=== PATIENT | male | born 2000 | race Caucasian/White ===

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

== ENCOUNTER 2021-01-09 18:54 | Observation (INO) | payer MEDICAID, SELFPAY ==
[2021-01-09 19:06] VITALS: BP 134/87; PULSE 75; RESP 18; TEMP 37.5; O2SAT 100
[2021-01-09 19:50] LABS: Abs Immature Grans 0.03 10^3/uL (0.0-0.06); Absolute Basophil Count 0.05 10^3/uL (0.0-0.2); Absolute Eosinophil Count 0.05 10^3/uL (0.0-0.7); Absolute Lymphocyte Count 1.62 10^3/uL (1.2-3.4); Absolute Neutrophil Count 5.88 10^3/uL (1.2-6.7); Basophils % 0.6; Eosinophils % 0.6; HCT 44.1 % (40.0-50.0); HGB 14.7 g/dL (13.5-17.5); Immature Grans % 0.4; Lymphocytes % 19.4; MCH 29.3 pg (27.0-33.0); MCHC 33.3 % (32.0-36.0); MCV 87.8 fL (80-95); MPV 11.3 fL (8.0-11.0); Monocytes % 8.4; Neutrophils % 70.6; Nucleated RBC 0 %; Platelet Count 198 10^3/uL (130-400); RBC 5.02 10^6/uL (4.36-5.78); RDW 12.6 % (11.8-14.1); RDW-SD 40.7 fL; WBC 8.33 10^3/uL (4.4-10.8)
[2021-01-09 19:57] LABS: Bilirubin Negative (Negative); Blood Trace-intact (Negative); Clarity Clear (Clear); Glucose Negative (Negative); Ketones Negative (Negative); Leukocyte Esterase Negative (Negative); Nitrite Negative (Negative); Specific Gravity >= 1.030 (1.005-1.025); Urobilinogen 0.2 EU/dL (Up TO 0.2); pH 6.5 (5-8)
--- NOTE | 2021-01-09 20:05 | W.ED.GENAD ---
Discharge Plan Disposition Patient Disposition: [facility] INPATIENT Condition: Stable Discharge Details Clinical Impression: Suicidal ideation Admit Date/Time: 01/09/21 23:51 Admit Provider: Renny Ta Attending Provider: Renny Ta Primary Care Provider: Layo Moore ED Provider: Michelle Suh Discharge Data Discharge Date/Time-TO BE ENTERED AT DEPARTURE: 01/10/21 03:05 Medical Decision Making 20-year-old male presents to the ER with chief complaint of suicidal thoughts. He reports that if he did have a plan he would hang myself but not really. He reports he has a history of previous admissions to [place] and [facility]. He reports that he has been having issues with his mental health lately he does appear anxious and restless and fidgety. He is a daily smoker. He denies any illicit drugs. He reports that he is supposed to be on medications but has not taken them in a while. He states that he was seeing psychiatrist but not recently. Patient is an line of sight of nurses station, belongings collected by engineer technical staff patient in paper scrubs. Medical clearance exam ordered and mental health evaluation. At this time 0.5 mg lorazepam p.o. ordered. Patient is calm and cooperative at this time. 2215: Spoke with Yudi with [facility] she reports he needs inpatient status, he endorses wanting to Hang self, slit wrists, or slit his throat, or overdose She reports he has no active plan, but she will do case management after he gets out. She recommends inpatient. He is voluntary status. She reports [facility] not accepting any referrals, is seeking placement at this time. 2342: Spoke with Airam Infante NP who is on-call for hospitalist service. I did discuss patient case and details with her she verbalizes understanding is in agreement for acceptance of patient for admission pending inpatient psychiatric placement. Patient has remained calm and cooperative throughout stay in the ER. Sitter at bedside. Plan is for patient to go up to floor at approximately 3am. Remains calm and cooperative hemodynamically stable. CPS so at bedside. Discussed pending admission with Dr. Galvan who is the ER physician. HPI General Mode of arrival: ambulatory. Date/Time Provider Initiated Documentation: 01/09/21 18:55. Limitations to Documentation: no limitations. Information obtained by: patient, RN notes reviewed and old records reviewed. HPI Narrative: 20-year-old male presents to the ER with chief complaint of suicidal thoughts. He reports that if he did have a plan he would hang myself but not really. He reports he has a history of previous admissions to [facility]. He reports that he has been having issues with his mental health lately he does appear anxious and restless and fidgety. He is a daily smoker. He denies any illicit drugs. He reports that he is supposed to be on medications but has not taken them in a while. He states that he was seeing psychiatrist but not recently. Related Data Home Medications Medication Instructions Recorded Confirmed Unknown [No Known Home Meds] 01/09/21 01/09/21 Allergies Allergy/AdvReac Type Severity Reaction Status Date / Time latex Allergy Unverified 01/09/21 19:13 General Stated Complaint: PsychEval ALISIA: 2 Review of Systems All systems reviewed & are unremarkable except as noted in HPI and below Constitutional Constitutional: Reports as per HPI, Reports difficulty sleeping, Denies fever(s) and Denies headache(s) ENT Ears, Nose, Mouth, and Throat: Denies headache(s) Gastrointestinal Gastrointestinal: Reports nausea and Reports vomiting Neurologic Neurologic: Denies headache(s) Psychiatric Psychiatric: Reports abnormal sleep pattern, Reports anxiety, Reports change in appetite, Reports depression and Reports suicidal ideation [facility] Social History Smoking/Tobacco Use Status: Current every day Tobacco Type: cigarettes Smoking risk assessment performed?: Yes Alcohol Intake: former Drug use: Current Sobriety Substance use type: former substance user Details: Clean x 7 months Do you feel safe at home: Yes Do you feel safe in your relationship?: Yes Exam Const General: cooperative, healthy appearing and anxious Nutritional Appearance: average body habitus and well nourished Orientation: alert, awake and oriented x3 Chest Chest: normal inspection of the chest Resp Effort & Inspection: normal respiratory effort and able to speak in complete sentences Cardio Palpation: normal PMI Rate: regular rate Rhythm: regular rhythm Heart Sounds: S1 normal and S2 normal GI Inspection: normal to inspection Palpation: soft and no guarding Auscultation: normal bowel sounds Psych Speech and Movement: restless Mood: anxious mood Affect: anxious affect Attitude: cooperative and guarded Thought Content: compulsions and suicidality Insight: insight good Judgment: fair Course Vital Signs Vital signs: Vital Signs Temperature 37.5 C 01/09/21 19:06 Pulse 75 01/09/21 19:06 Respiratory Rate 18 01/09/21 19:06 Blood Pressure 134/87 01/09/21 19:06 Pulse Oximetry 100 01/09/21 19:06 Temperature 37.5 C 01/09/21 19:06 Temperature Source Tympanic 01/09/21 19:06 Pulse 75 01/09/21 19:06 Respiratory Rate 18 01/09/21 19:06 Respiratory Effort Non-Labored 01/09/21 19:17 Blood Pressure 134/87 01/09/21 19:06 Blood Pressure Position Sitting 01/09/21 19:06 Pulse Oximetry 100 01/09/21 19:06 Oxygen Delivery Method Room Air 01/09/21 19:06 Oxygen Flow Rate 0 01/09/21 19:06 Pain Level 0 01/09/21 19:06 Lab/Test Results Lab/Test Results: Laboratory Tests Range/Units 01/09/21 01/09/21 19:12 19:40 WBC (4.4-10.8) 10^3/uL 8.33 RBC (4.36-5.78) 10^6/uL 5.02 Hgb (13.5-17.5) g/dL 14.7 Hct (40.0-50.0) % 44.1 MCV (80-95) fL 87.8 MCH (27.0-33.0) pg 29.3 MCHC (32.0-36.0) % 33.3 RDW (11.8-14.1) % 12.6 Plt Count (130-400) 10^3/uL 198 MPV (8.0-11.0) fL 11.3 H Immature Gran % 0.4 Neutrophils % 70.6 Lymphocytes % 19.4 Monocytes % 8.4 Eosinophils % 0.6 Basophils % 0.6 Nucleated RBC % % 0 Absolute Neutrophils (1.2-6.7) 10^3/uL 5.88 Absolute Lymphocytes (1.2-3.4) 10^3/uL 1.62 Absolute Monocytes (0.1-0.8) 10^3/uL 0.70 Absolute Eosinophils (0.0-0.7) 10^3/uL 0.05 Absolute Basophils (0.0-0.2) 10^3/uL 0.05 Urine Color (Yellow) Yellow Urine Clarity (Clear) Clear Urine pH (5-8) 6.5 Ur Specific [place] (1.005-1.025) >= 1.030 H Urine Protein (Negative) mg/dL Negative Urine Ketones (Negative) mg/dL Negative Urine Blood (Negative) Trace-intact H Urine Nitrite (Negative) Negative Urine Bilirubin (Negative) Negative Urine Urobilinogen (Up TO 0.2) EU/dL 0.2 Ur Leukocyte Esterase (Negative) Negative Urine Glucose (Negative) mg/dL Negative
[2021-01-09] MEDS: LORazepam 0.5 MG TAB PO (20:10)
[2021-01-09 20:13] LABS: ALT 13 U/L (16-63); AST 9 U/L (15-37); Albumin 4.6 g/dL (3.4-5.0); Alkaline Phosphatase 71 U/L (46-116); Anion Gap 8.9 mmol/L (3-11); BUN 9 mg/dL (7-18); Bilirubin, Total 0.4 mg/dL (0.2-1.0); CO2 28.1 mmol/L (21.0-32.0); CREATININE 0.9 mg/dL (0.70-1.30); Calcium 9.4 mg/dL (8.5-10.1); Chloride 105 mmol/L (98-107); Glucose 106 mg/dL (74-106); Potassium 3.7 mmol/L (3.5-5.1); Sodium 142 mmol/L (136-145); TSH (W/Ref FT4) 1.52 uIU/mL (0.52-4.13)
[2021-01-09 20:15] LABS: Bacteria Negative HPF (Negative); C & S Indicated? No; Casts Negative LPF (Negative); Crystals Few Amorphous HPF (Negative); Epithelial Cells Negative HPF (Negative); Mucus Negative (Negative); Other Cells Negative (Negative); RBC 0-2 HPF (0-2); WBC Negative HPF (0-5)
[2021-01-09 20:18] LABS: *AMPHETAMINES SCREEN URINE Negative (Negative); *BARBITURATES SCREEN URINE Negative (Negative); *BENZODIAZEPINES SCREEN URINE Negative (Negative); Cannabinoids THC Positive (Negative); Cocaine Screen,Urine Negative (Negative); METHADONE URINE SCREEN Negative (Negative); OPIATES URINE SCREEN Negative (Negative)
[2021-01-09 20:19] LABS: Tricyclic Antidepressants Negative (Negative)
[2021-01-09 20:20] LABS: Salicylate < 2.8 mg/dL (<2.8)
[2021-01-09 20:25] LABS: ETHANOL BLOOD < 3.0 mg/dL (<3)
[2021-01-09 20:26] LABS: Acetaminophen < 2 ug/mL (10-30)
--- NOTE | 2021-01-10 00:39 | W.PM.HP.N ---
Date of service: 01/10/21 Time of Service: 00:39 Assessment and Plan Assessment and plan (1) Suicidal ideation: Start date: 01/10/21 Start time: 00:45 Status: Acute Assessment and plan: Thoughts of SI evaluated by and cleared for voluntary status. Awaiting bed placement at this time CPSO present discussed with Dr. Ta History of Present Illness History of Present Illness Chief Complaint: Suicidial Ideation Narrative: 20 y.o male with no pmh presented to the ED with thoughts of wanting to harm himself. He thought of hanging himself if really wanted to do self harm. He was evaluated by and found to save for voluntary service. He was asked to be admitted to transition unit until a MH bed is available. He has been medically cleared. He will be admitted with 1:1 cpso. Review of Systems All systems reviewed & are unremarkable except as noted in HPI and below PFSH Social History Smoking/Tobacco Use Status: Current every day Tobacco Type: cigarettes Smoking risk assessment performed?: Yes Alcohol Intake: former Drug use: Current Sobriety Substance use type: former substance user Details: Clean x 7 months Do you feel safe at home: Yes Do you feel safe in your relationship?: Yes Meds Allergies and Home Medications Allergies Allergy/AdvReac Type Severity Reaction Status Date / Time latex Allergy Unverified 01/09/21 19:13 Home Medications Medication Instructions Recorded Confirmed Type Unknown [No Known Home Meds] 01/09/21 01/09/21 History Exam Const General: cooperative and no acute distress Eyes Pupils: PERRL Resp Effort & Inspection: normal respiratory effort Auscultation: clear to auscultation bilaterally Cardio Jugular venous pressure: no JVD Rate: regular rate Rhythm: regular rhythm GI Inspection: normal to inspection Auscultation: normal bowel sounds Skin General skin exam: no rashes or lesions noted Psych Appearance: grossly normal Mental Status: mental status grossly normal and other Speech and Movement: speech and movement normal Mood: other Affect: sad Attitude: cooperative Thought Process: other Thought Content: suicidality Insight: limited Judgment: limited Results Labs Result diagrams: 01/09/21 19:40 01/09/21 19:40 Labs: Laboratory Results - last 24 hr 01/09/21 01/09/21 01/09/21 19:12 19:12 19:40 WBC RBC Hgb Hct MCV MCH MCHC RDW Plt Count MPV Immature Gran % Neutrophils % Lymphocytes % Monocytes % Eosinophils % Basophils % Nucleated RBC % Absolute Neutrophils Absolute Lymphocytes Absolute Monocytes Absolute Eosinophils Absolute Basophils Sodium 142 Potassium 3.7 Chloride 105 Carbon Dioxide 28.1 Anion Gap 8.9 BUN 9 Creatinine 0.9 Estimated GFR/1.73 m2 >= 60.00 Glucose 106 Calcium 9.4 Total Bilirubin 0.4 AST 9 L ALT 13 L Alkaline Phosphatase 71 Total Protein 8.0 Albumin 4.6 TSH 1.52 Urine Color Yellow Urine Clarity Clear Urine pH 6.5 Ur Specific [place] >= 1.030 H Urine Protein Negative Urine Ketones Negative Urine Blood Trace-intact H Urine Nitrite Negative Urine Bilirubin Negative Urine Urobilinogen 0.2 Ur Leukocyte Esterase Negative Urine RBC 0-2 Urine WBC Negative Ur Epithelial Cells Negative Urine Crystals Few Amorphous Urine Bacteria Negative Urine Casts Negative Urine Mucus Negative Urine Other Negative Ur Culture Indicated? No Urine Glucose Negative Salicylates Urine Opiates Screen Negative Urine Methadone Screen Negative Acetaminophen Ur Barbiturates Screen Negative Ur Tricyclics Screen Negative Ur Amphetamines Screen Negative U Benzodiazepines Scrn Negative Urine Cocaine Screen Negative Ur THC Screen Positive A Ethyl Alcohol < 3.0 01/09/21 01/09/21 19:40 19:40 WBC 8.33 RBC 5.02 Hgb 14.7 Hct 44.1 MCV 87.8 MCH 29.3 MCHC 33.3 RDW 12.6 Plt Count 198 MPV 11.3 H Immature Gran % 0.4 Neutrophils % 70.6 Lymphocytes % 19.4 Monocytes % 8.4 Eosinophils % 0.6 Basophils % 0.6 Nucleated RBC % 0 Absolute Neutrophils 5.88 Absolute Lymphocytes 1.62 Absolute Monocytes 0.70 Absolute Eosinophils 0.05 Absolute Basophils 0.05 Sodium Potassium Chloride Carbon Dioxide Anion Gap BUN Creatinine Estimated GFR/1.73 m2 Glucose Calcium Total Bilirubin AST ALT Alkaline Phosphatase Total Protein Albumin TSH Urine Color Urine Clarity Urine pH Ur Specific [place] Urine Protein Urine Ketones Urine Blood Urine Nitrite Urine Bilirubin Urine Urobilinogen Ur Leukocyte Esterase Urine RBC Urine WBC Ur Epithelial Cells Urine Crystals Urine Bacteria Urine Casts Urine Mucus Urine Other Ur Culture Indicated? Urine Glucose Salicylates < 2.8 Urine Opiates Screen Urine Methadone Screen Acetaminophen < 2 Ur Barbiturates Screen Ur Tricyclics Screen Ur Amphetamines Screen U Benzodiazepines Scrn Urine Cocaine Screen Ur THC Screen Ethyl Alcohol Last Vital Signs Temp 37.5 C 01/09/21 19:06 Pulse 75 01/09/21 19:06 Resp 18 01/09/21 19:06 BP 134/87 01/09/21 19:06 Pulse Ox 100 01/09/21 19:06
[2021-01-10 03:30] VITALS: BP 130/82; PULSE 55; RESP 16; TEMP 35.8; O2SAT 98
[2021-01-10 03:52] LABS: Source Nasal/Nares
[2021-01-10 04:45] LABS: COVID-19 PCR Negative (Negative)
--- NOTE | 2021-01-10 08:36 | PDOC.CMPRO ---
- If Service Date Differs Date of service: 01/10/21 Time of Service: 08:41 Care Management Progress Note VOLUNTARY FOR INPATIENT PSYCHIATRIC STABILIZATION. Glen has been appropriate in all interactions since arriving at [facility]; he has demonstrated appropriate coping and communication skills, has articulated his needs and concerns and is fully engaged during staff interactions. He requested medication this morning when feeling anxious (refer to RN note) and accepted nicotene replacement as well. Safety plan has been established with patient, and care team, to adhere to patient goals, identify restrictions based on behavioral status, address nutrition, and determine allowed personal belongings, tools for hygiene and personal care. Determine level of activity including ambulation, level of supervision, visitors, and determine privileges based on behaviors and level of engagement by pt. SAFETY PLAN: 1. Will remain on suicide precautions. In Paper Clothes. 2. Will remain in room under direct supervision of one-on-one staff at all times provided by CPSO; [employer], [employer] CORE FEEDER factory laborer. 3. May have paper cups, plates, finger foods as well as a cardboard spoon with which to eat meals. 4. Follow [facility] Management of the Admitted Behavioral Health Patient policy. 5. Comfort bath system and shower permitted with escort at RN discretion. 6. No personal belongings 7. Visitors-No visitors at this time 8. Activities: Television, remote and soft cart items permitted per RN discretion. 9. Bathroom: available in room without limitation. 10. Phone: incoming and outgoing calls on [facility] cordless phone permitted per RN discretion. 11. Due to VOLUNTARY status, if patient wishes to leave [facility], staff will contact [facility] Crisis Screener ([phone]) and On-Call Ethanol Maintenance Mechanic ([phone]) as soon as possible. In the event of elopement, notify [facility] Police ([phone]). Patient is currently voluntarily at [facility] and seeking inpatient admission when a bed becomes available. [facility] Frontline Diesel Engine Erector will continue seeking placement. Please contact the Data Analytics Analyst Ethanol Maintenance Mechanic ([phone]) and [facility] Diesel Engine Erector ([phone]) for any needed changes in the Safety Plan. Safety plan has been provided to interdepartmental care team. - Status Status: Voluntary - Reason for Wait Reason for Wait: Inpatient Admission
[2021-01-10] MEDS: Nicotine 14 MG/24 HR PATCH TD (10:22)
[2021-01-10] MEDS: LORazepam 0.5 MG TAB PO ×2 (10:23→16:02)
[2021-01-10 10:30] VITALS: BP 115/62; PULSE 58; RESP 16; TEMP 36.9; O2SAT 100
--- NOTE | 2021-01-10 11:03 | NUR.NOTE ---
Nursing Note: 0915: Madeline ARIAS requesting RN presence in pt's room. RN enters room to find pt pacing in room, pulling on berry. RN asks pt how he can be assisted; pt states he is very anxious at this time, pt had completed phone call with mother just a few minutes prior, pt states his worried about my cat, pt's cat is currently at his father's home and pt feels that the cat is not safe there as father had told pt the cat will be gone when you get back. pt states his mother and sister are working on getting his cat from his father's house but it unclear at this time. pt states he has had the cat for about one year and lost his former cat and dog awhile ago. pt requesting something for anxiety at this time; RN asks pt what he has taken in the past and he states that the meds I got in the emergency room worked good. RN requests order for 05.mg of lorazepam for pt from [facility]. continue to monitor.
[2021-01-10 16:03] VITALS: BP 128/85; PULSE 94; RESP 20; TEMP 37.7; O2SAT 98
--- NOTE | 2021-01-10 16:32 | W.PM.DS.N ---
Date of service: 01/10/21 Time of Service: 16:32 DS: Diagnosis Discharge Diagnosis (1) Suicidal ideation: Start date: 01/10/21 Start time: 16:33 Status: Acute Asessment and Plan: Patient admitted to transition unit for SI and depression. He states no true SI today, though he is depressed with anxiety. Placed on ativan prn with nicotrol inhaler. He has been accepted to [facility] by Dr. Ravi. Air Pollution Analyst for transport Discharge Plan Disposition Patient Disposition: [facility] Condition: Stable Discharge Details Reason For Visit: SUICIDAL IDEATION Admit Date/Time: 01/09/21 23:51 Admit Provider: Renny Ta Attending Provider: Renny Ta Primary Care Provider: Layo Moore [facility] Course Hospital Course: 20 y.o male with no pmh presented to the ED with thoughts of wanting to harm himself. He thought of hanging himself if really wanted to do self harm. He was evaluated by and found to save for voluntary service. He was asked to be admitted to transition unit until a bed is available. He has been medically cleared. He will be admitted with 1:1 cpso. He has been accepted to [facility] in care of Dr. Ravi. Home Meds and New Rx's Prescriptions: No Action No Known Home Meds RF: 0 Discharge Instructions Activity:: Activity as Tolerated Equipment/Supplies:: No Equipment Needed Diet:: As Tolerated Discharge Orders Discharge Orders: Discharge Order (Routine); Ordered 01/10/21 Ordered By: Airam Taylor DS: Summary Time Spent with Patient providing and/or coordinating discharge services: Less than 30 minutes Status at Discharge Functional status at discharge: independent ambulation Overall status at discharge: patient is not back to baseline Mental Status: mental status grossly normal and other Speech and Movement: speech and movement normal Mood: other Affect: sad Exam Const General: cooperative and no acute distress Eyes Pupils: PERRL Resp Effort & Inspection: normal respiratory effort Auscultation: clear to auscultation bilaterally Cardio Jugular venous pressure: no JVD Rate: regular rate Rhythm: regular rhythm GI Inspection: normal to inspection Auscultation: normal bowel sounds Skin General skin exam: no rashes or lesions noted Psych Appearance: grossly normal Mental Status: mental status grossly normal and other Speech and Movement: speech and movement normal Mood: other Affect: sad Attitude: cooperative Thought Process: other Thought Content: suicidality Insight: limited Judgment: limited DS: Data Vitals/I&O Vitals and I&O: Vital Signs Temperature 37.7 C H 01/10/21 16:03 Temperature Source Tympanic 01/10/21 16:03 Pulse 94 H 01/10/21 16:03 Pulse Rhythm Regular 01/10/21 10:15 Respiratory Rate 20 01/10/21 16:03 Respiratory Effort 01/10/21 10:15 Respiratory Depth Normal 01/10/21 10:15 Respiratory Pattern Normal 01/10/21 10:15 Blood Pressure 128/85 01/10/21 16:03 Blood Pressure Position Sitting 01/09/21 19:06 Pulse Oximetry 98 01/10/21 16:03 Oxygen Delivery Method Room Air 01/10/21 16:03 Oxygen Flow Rate 0 01/10/21 16:03 Pain Level 0 01/10/21 11:23 Comment 01/10/21 03:30 Intake & Output 01/09/21 01/10/21 01/10/21 23:59 11:59 23:59 Intake Total 280 / 390 110 / 390 Balance 280 / 390 110 / 390 Weight 63.503 kg Intake: Oral 280 / 390 110 / 390 Other: Urine Color Light Maria Alejandra Urine Appearance Clear Urine Odor None Voiding Methods Toilet Data Completed and Pending Labs on day of discharge: Labs from last 24 hours 01/10/21 01/09/21 01/09/21 00:35 19:40 19:40 WBC 8.33 RBC 5.02 Hgb 14.7 Hct 44.1 MCV 87.8 MCH 29.3 MCHC 33.3 RDW 12.6 Plt Count 198 MPV 11.3 H Immature Gran % 0.4 Neutrophils % 70.6 Lymphocytes % 19.4 Monocytes % 8.4 Eosinophils % 0.6 Basophils % 0.6 Nucleated RBC % 0 Absolute Neutrophils 5.88 Absolute Lymphocytes 1.62 Absolute Monocytes 0.70 Absolute Eosinophils 0.05 Absolute Basophils 0.05 Sodium Potassium Chloride Carbon Dioxide Anion Gap BUN Creatinine Estimated GFR/1.73 m2 Glucose Calcium Total Bilirubin AST ALT Alkaline Phosphatase Total Protein Albumin TSH Urine Color Urine Clarity Urine pH Ur Specific [place] Urine Protein Urine Ketones Urine Blood Urine Nitrite Urine Bilirubin Urine Urobilinogen Ur Leukocyte Esterase Urine RBC Urine WBC Ur Epithelial Cells Urine Crystals Urine Bacteria Urine Casts Urine Mucus Urine Other Ur Culture Indicated? Urine Glucose Salicylates < 2.8 Urine Opiates Screen Urine Methadone Screen Acetaminophen < 2 Ur Barbiturates Screen Ur Tricyclics Screen Ur Amphetamines Screen U Benzodiazepines Scrn Urine Cocaine Screen Ur THC Screen Ethyl Alcohol COVID-19 Source Nasal/Nares SARS-CoV-2 (PCR) Negative 01/09/21 01/09/21 01/09/21 19:40 19:12 19:12 WBC RBC Hgb Hct MCV MCH MCHC RDW Plt Count MPV Immature Gran % Neutrophils % Lymphocytes % Monocytes % Eosinophils % Basophils % Nucleated RBC % Absolute Neutrophils Absolute Lymphocytes Absolute Monocytes Absolute Eosinophils Absolute Basophils Sodium 142 Potassium 3.7 Chloride 105 Carbon Dioxide 28.1 Anion Gap 8.9 BUN 9 Creatinine 0.9 Estimated GFR/1.73 m2 >= 60.00 Glucose 106 Calcium 9.4 Total Bilirubin 0.4 AST 9 L ALT 13 L Alkaline Phosphatase 71 Total Protein 8.0 Albumin 4.6 TSH 1.52 Urine Color Yellow Urine Clarity Clear Urine pH 6.5 Ur Specific [place] >= 1.030 H Urine Protein Negative Urine Ketones Negative Urine Blood Trace-intact H Urine Nitrite Negative Urine Bilirubin Negative Urine Urobilinogen 0.2 Ur Leukocyte Esterase Negative Urine RBC 0-2 Urine WBC Negative Ur Epithelial Cells Negative Urine Crystals Few Amorphous Urine Bacteria Negative Urine Casts Negative Urine Mucus Negative Urine Other Negative Ur Culture Indicated? No Urine Glucose Negative Salicylates Urine Opiates Screen Negative Urine Methadone Screen Negative Acetaminophen Ur Barbiturates Screen Negative Ur Tricyclics Screen Negative Ur Amphetamines Screen Negative U Benzodiazepines Scrn Negative Urine Cocaine Screen Negative Ur THC Screen Positive A Ethyl Alcohol < 3.0 COVID-19 Source SARS-CoV-2 (PCR) [facility] Social History Smoking/Tobacco Use Status: Current every day Tobacco Type: cigarettes Smoking risk assessment performed?: Yes Alcohol Intake: former Drug use: Current Sobriety Substance use type: former substance user Details: Clean x 7 months Do you feel safe at home: Yes Do you feel safe in your relationship?: Yes
== END 2021-01-10 19:26 | disposition short-term general hospital (02) ==
LOC: ER 01-10 02:15 → MS 01-10 03:36
PROVIDERS: Admitting Provider Family Medicine; Emergency Provider Registered Nurse Emergency; PCP Internal Medicine; Visit Provider Family Medicine
DX: R45.851 Suicidal ideations (principal); F17.210 Nicotine dependence, cigarettes, uncomplicated; F32.A Depression, unspecified; Z20.822 Contact with and (suspected) exposure to COVID-19
CPT/HCPCS: 36415; 80053; 80307; 87635; 99285; 80320; 80329; 81003; 81015; 84443; 85025; 99235; 99284; G0378